=== PATIENT | male | born 1955 | race Caucasian/White ===

== ENCOUNTER → 2017-07-26 | Outpatient (CLI) | payer OTHER ==
[~2017-07-26] MED LIST: CEPH500C PO; LISI5TAB3 PO; LRT5 PO; ONDA8TAB6 PO; ONDA8TAB62 SL
--- NOTE | 2017-07-26 12:29 | DIAGNOSTIC IMAGING REPORT ---
CHEST 2 VIEWS ROUTINE CLINICAL HISTORY: Bronchitis. COMPARISON STUDY: No previous studies for comparison. FINDINGS: The lung volumes are normal. There is no pneumothorax or pleural effusion. There is a hazy 6.1 cm right infrahilar opacity on frontal projection. A definite correlate is not identified on the lateral projection. The left lung is clear. There is no evidence for pulmonary edema. Cardiomediastinal silhouette is normal. IMPRESSION: Hazy right infrahilar opacity which favors pneumonia. Radiographic follow-up to ensure resolution is recommended. Electronically signed by: Nish Bejarano M.D. 07/26/2017 12:28 PM Dictated Date/Time: 07/26/2017 12:26 PM
== END | disposition home or self-care (01) ==
LOC: C.LAB 11:37
PROVIDERS: ATTEND Internal Medicine
DX: J40 Bronchitis, not specified as acute or chronic (principal); R91.8 Other nonspecific abnormal finding of lung field

== ENCOUNTER → 2017-08-30 | Outpatient (CLI) | payer OTHER ==
[~2017-08-30] MED LIST changes: +ONDA-170 PO; -ONDA8TAB6 PO
--- NOTE | 2017-08-30 14:34 | DIAGNOSTIC IMAGING REPORT ---
CHEST 2 VIEWS ROUTINE CLINICAL HISTORY: 61 years-old Male presenting with PNEUMONIA FOLLOW-UP. TECHNIQUE: PA and lateral views of the chest were obtained. COMPARISON: 07/26/2017. FINDINGS: Cardiomediastinal silhouette normal. Previously noted hazy opacity in the right mid to lower lung is no longer evident. No new focal opacity. No pleural effusion or pneumothorax. Osseous structures normal. Upper abdomen normal. IMPRESSION: 1. No acute cardiopulmonary disease. Resolution of prior infiltrate in the right mid to lower lung. Electronically signed by: Alon Diallo M.D. 08/30/2017 2:33 PM Dictated Date/Time: 08/30/2017 2:32 PM
== END | disposition home or self-care (01) ==
LOC: C.RAD 13:40
PROVIDERS: ATTEND Internal Medicine
DX: Z09 Encounter for follow-up examination after completed treatment for conditions other than malignant neoplasm (principal); J18.9 Pneumonia, unspecified organism

== ENCOUNTER 2022-10-04 05:10 | Observation (INO) ==
--- NOTE | 2022-09-07 13:18 | PAT Medication Instructions ---
Medication Instructions Date of Service September 07, 2022 Home Medications glucosam 750 mg-chondroi 100 mg-hyalur 1.65 mg-CF borate 108 mg tablet ([employer]) 1 tab PO QAM lisinopril 20 mg tablet 20 mg PO QAM multivitamin 1 tab PO QAM tramadol 50 mg tablet 25 mg PO BID STOP taking 2 weeks before surgery glucosam 750 mg-chondroi 100 mg-hyalur 1.65 mg-CF borate 108 mg tablet ([facility] [employer]) 1 tab PO QAM DO NOT take the morning of surgery lisinopril 20 mg tablet 20 mg PO QAM multivitamin 1 tab PO QAM Take morning of surgery With a small sip of water, OTHERWISE NOTHING TO EAT OR DRINK AFTER MIDNIGHT: tramadol 50 mg tablet 25 mg PO BID (if needed) Take evening before surgery tramadol 50 mg tablet 25 mg PO BID (if needed) Other Notes If you have any questions please call us at [phone] or [phone] or [phone] or [phone]
--- NOTE | 2022-09-14 14:54 | Anesthesiology Consultation ---
Date of Service September 14, 2022 Assessment & Plan (1) Encounter for pre-operative examination: - Outpatient joint assessment: Patient is currently scheduled for inpatient pathway. If re-evaluated pending system levels during current pandemic/surgeon requests outpatient pathway, patient is not recommended candidate for outpatient joint program from anesthesia standpoint, pt also expresses concern with same day surgery. Chart Review Chart Review: Acceptable Risk for Surgery and Patient seen in Pre Admission Testing History Surgery Operation Date: 10/04/22 07:00 Proposed Procedures p Left Total Hip Arthroplasty - Alon Spann MD Height/Weight Height: 6 ft Weight: 88.451 kg Allergies Allergy/AdvReac Type Severity Reaction Status Date / Time No Known Allergies Allergy NONE Verified 09/06/22 12:49 Medications Home Medications Medication Instructions Recorded Confirmed Last Taken glucosam 750 mg-chondroi 100 1 tab PO QAM 09/06/22 09/06/22 Unknown mg-hyalur 1.65 mg-CF borate 108 mg tablet ([facility] [place] [employer]) lisinopril 20 mg tablet 20 mg PO QAM 09/06/22 09/06/22 Unknown multivitamin 1 tab PO QAM 09/06/22 09/06/22 Unknown tramadol 50 mg tablet 25 mg PO BID 09/06/22 09/06/22 Unknown Past Medical History Medical History (Updated 09/14/22 @ 15:01 by Bonita Gamble PA-C) History of COVID-19 x2 > last episode Mar 2022 > not hospitalized > symptoms resolved History of shingles 7 yrs ago Hypertension controlled, stable per pt Nausea and vomiting after administration of anesthetic agent denies needing scop patch Patient denies h/o stroke, seizures, heart attack, heart failure, DM, blood clots or blood transfusions. Exercise / Class Metabolic Activity II 4-5 Yardwork/Stairs/Walk up hill (denies chest discomfort or shortness of breath with 1 FOS) Past Family History Family History Mother Diabetes Past Surgical History Surgical History History of colonoscopy History of mandibular surgery alignment surgery History of tooth extraction Hx of vasectomy Past Anesthesia History No Hx of Anesthesia Complications and No Family Hx of Anesthesia Complications History of PONV No Hx of Motion Sickness and History of PONV (denies needing scop patch) Social History Smoking Status: Never smoker Do You Dip or Chew Tobacco: No Hx Alcohol Use: No Hx Substance Use: No substance use type: does not use Review of Systems Patient denies chest pain, shortness of breath, dyspnea on exertion, snoring, witnessed apneas, reflux, fever, chills, cough, wheezing, or palpitations. Physical Exam Vital Signs Vitals BP 128/73 P 86 TEMP 97.9 SP02 97% on RA RESP 18 Physical Full cervical extension range of motion without pain TMD 3.5 finger breadths Mallampati Score 2 Dentition: several caps/crowns, denies chipped or loose teeth, implants or bridges Lungs: normal respiratory effort. Clear throughout to auscultation, no adventitious breath sounds Cardiac: regular rate and rhythm, no murmurs noted Carotid arteries: negative bruit bilat Lab Results Anesthesia Preop Results Results Anesthesia Widget: Na 137 mmol/L (136-145) 09/14/22 K 4.3 mmol/L (3.5-5.1) 09/14/22 Cl 105 mmol/L (98-107) 09/14/22 CO2 27 mmol/L (21-32) 09/14/22 BUN 23 mg/dl (6-23) 09/14/22 Creat 1.31 mg/dl (0.6-1.4) 09/14/22 Glucose Level 89 mg/dl (70-99(Fasting)) 09/14/22 Blood Type O Positive 09/14/22 Antibody Screen NEGATIVE 09/14/22 Testing Laboratory Results 09/01/2022 WBC: 7 H/H: 13/41 PLATELETS: 274 PT: 9.9 PTT: INR: 1 UA: clear, negative Electrocardiogram Date: 08/29/22 NSR, rate 68 bpm Voltage criteria for LVH Nonspecific ST abnormality COVID-19 Risk Screen Screening Information COVID-19 Screen Date: 09/14/22 Exposure 21 Days Family/Household +COVID Last 21 Days: No Exposure 10 Days Any COVID Exposure Last 10 Days: No Symptoms Last 10 Days Experienced COVID Sx Last 10 Days: No + COVID 0-90 Days COVID + in Last 0-90 Days: No
--- NOTE | 2022-09-21 10:23 | History & Physical Report ---
Date of Service September 21, 2022 Assessment & Plan (1) Osteoarthritis of left hip: Plan: PRE-OP Diagnosis: Left hip osteoarthritis Planned Procedure: Left total hip arthroplasty Plan: Patient is scheduled to undergo this procedure at the [facility] with a 23-hour observation admission with Dr. Spann on September. Risks and complications of the procedure such as: Infection, bleeding, pain, scarring, nerve blood vessel damage, weakness, wound problems, stiffness, incomplete relief of symptoms, hardware failure, hardware loosening, wear, fracture, tendon or ligament injury, dislocation, leg length inequality, blood clots, Embolism, heart attack, stroke and were explained to the patient at his visit today. Informed consent to perform the procedure was obtained. Patient also understands risks of proceeding with surgical intervention during the COVID-19 pandemic. Currently he is asymptomatic and has not been in contact with anyone positive for the virus recently. Patient at his appointment with PAT on September 14 and while there will obtain CBC with differential, complete metabolic panel, PT/INR, blood type and screen, urinalysis, urine culture and sensitivity, EKG, hemoglobin A1c and a nasal culture for MRSA. Patient will also need preoperative medical clearance from their primary care provider Dr. Saldana. Patient states he saw Dr. Saldana on August 29 and was provided clearance to proceed with surgical intervention. Patient states that he plans on doing in-home physical therapy for the first 1 to 2 weeks postoperatively with [facility]. Patient states that he will most likely elect to do outpatient physical therapy at our PT clinic. Patient will need a walker, raised toilet seat, shower chair and a hip kit. During today's visit we reviewed the total hip packet as well as precautions. We discussed discharge planning from the hospital. Patient states that he already has a permanent placard for his vehicle due to his 's condition. We discussed lectures offered by [facility] in regards to joint replacement surgery via Zoom. I advised the patient that upon discharge from hospital we will prescribe a narcotic pain medication and anti-inflammatory. Patient will also be on an 81 mg aspirin twice daily for blood clot prevention. Patient will be scheduled for 2-week postoperative follow-up visit with myself on October 17. At that visit we will Provide the patient with an order for outpatient physical therapy and rehab protocol. Patient verbalizes understanding of all information provided during today's visit. He thanks for the care that he received. If he has questions or concerns that should arise prior to his surgery, he will contact clinic. This chart was completed utilizing [employer] voice recognition software. Grammatical errors, random word insertions, pronoun errors, and in complete sentences are an occasional consequence of the system. Any questions or concerns about the content, text, or information contained within the body of this dictation should be addressed directly to the physician for clarification. History of Present Illness Chief Complaint: Chief Complaint: Left hip pain Primary Care Provider: Louie Plascencia MD History of Present Illness (including history relevant to procedure): This 66-year-old male presents the clinic today for his preoperative history and physical. 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 Patient localizes most of his pain to the groin area. He seems to have exacerbations with certain twisting type movements or squatting. Patient states that he saw one of the other orthopedic groups in town initially who recommended an exercise program which he did without improvement. He has also been using naproxen and extra strength Tylenol with only minimal relief. Patient is electing to proceed with surgical intervention at this time because the hip issue is starting to affect his activities of daily life and makes it difficult to care for his disabled . Review Of Systems: A 12 point review of systems is performed and is unremarkable except for those things stated in the HPI past medical history. Past Medical History: Problems: Arthritis of left hip Nocturia HLD (hyperlipidemia) CKD (chronic kidney disease), stage III Encounter for monitoring chronic NSAID therapy Hip pain HTN (hypertension) Procedure History Procedure Procedure Date Comments Hip X-ray Jaw realignment surgery 1957 - Impression: Moderate to severe left hip osteoarthritis. No fracture or dislocation within the pelvis or hips. Allergies and Sensitivities: No Known Medication Allergies Current Home Meds: (Last Updated 09/19 10:15) chondroitin-glucosamine (Huseyin Move Free 500 mg-400 mg oral tablet) 1 tab PO BID lisinopril (lisinopril 20 mg oral tablet) 20 mg PO Daily traMADol (traMADol 50 mg oral tablet) 50 mg PO Daily PRN: as needed for pain may take half a pill BID Allergies Allergy/AdvReac Type Severity Reaction Status Date / Time No Known Allergies Allergy NONE Verified 09/06/22 12:49 Home Medications Medication Instructions Recorded Confirmed Type glucosam 750 mg-chondroi 100 1 tab PO QAM 09/06/22 09/06/22 History mg-hyalur 1.65 mg-CF borate 108 mg tablet ([facility]) lisinopril 20 mg tablet 20 mg PO QAM 09/06/22 09/06/22 History multivitamin 1 tab PO QAM 09/06/22 09/06/22 History tramadol 50 mg tablet 25 mg PO BID 09/06/22 09/06/22 History Past Med/Surg History Medical History History of COVID-19 x2 > last episode Mar 2022 > not hospitalized > symptoms resolved History of shingles 7 yrs ago Hypertension controlled, stable per pt Nausea and vomiting after administration of anesthetic agent denies needing scop patch Surgical History History of colonoscopy History of mandibular surgery alignment surgery History of tooth extraction Hx of vasectomy Family History Mother Diabetes Social History Smoking Status: Never smoker Second Hand Exposure: No; Do You Dip or Chew Tobacco: No; Hx Alcohol Use: No Hx Substance Use: No Preferred Language: Chinese Communication Ability: Effective Telecommunications Line Installer Required: No Beliefs That Will Affect Care: None Current Living Situation: Spouse Feels Safe at Home: Yes Assistive Devices: Glasses Review of Systems All systems reviewed & are unremarkable except as noted in Subjective Physical Exam Physical Exam: Physical Exam: (relevant to the procedure, including heart and lung evaluation) General: Alert and oriented x3 with proper grooming and hygiene Eyes: pupils are equal and reactive to light with accommodation. Extraocular movements are intact Throat: Posterior oropharynx is clear with absence of edema, erythema or exudate. Dentition is appropriate Cardiac: Regular rate and rhythm with no murmurs or gallops appreciated Lungs: Clear to auscultation throughout with no wheezing, rales or rhonchi Abdomen: Mildly obese, nondistended, nontender with NABS Extremities: Left hip; flexion is limited to 100 degrees, internal rotation to 0 degrees and external rotation to 45 degrees. Stinchfield test and logroll test are both positive. Patient experiences tenderness to palpation in the groin area as well as over the posterior lateral aspect and hip. He neurovascularly intact in the left lower extremity but does walk with a slight antalgic gait Neuro: Cranial nerves II through XII are intact no motor or sensory deficit Skin: Normal in appearance with no open skin areas or discharge Results & Data Diagnostic Findings Studies (relevant to the procedure): X-rays that were done on April 30, 2022, are reviewed. These include AP pelvis and AP and lateral of the left hip. These show severe osteoarthritis of the left hip with near [id number] arthritis, joint space narrowing, marginal osteophytes.
[2022-10-04] MEDS ORDERED: traMADol HCL 50 MG TABLET PO SCH (06:00)
[2022-10-04] MEDS ORDERED: ceFAZolin 2000MG 2,000 MG/15 ML SYR IV SCH (06:00)
[2022-10-04] MEDS ORDERED: Scopolamine 1 MG TDSY TD SCH (06:00)
[2022-10-04] MEDS ORDERED: LACTATED RINGER'S 1,000 ML IV SCH (06:00)
[2022-10-04] MEDS ORDERED: FAMOTIDINE 20 MG TAB PO SCH (06:00)
[2022-10-04] MEDS ORDERED: ROPIVACAINE 0.5% HCL/PF 150 MG, BUPIVACAINE 0.75% MPF 20 ML, EPINEPHrine 0.15 MG, Ketor... INFIL SCH (06:00)
[2022-10-04] MEDS ORDERED: TRANEXAMIC ACID 1,000 MG **IV Intra-op IV SCH (06:00)
[2022-10-04] MEDS ORDERED: ACETAMINOPHEN 500 MG TAB PO SCH (06:00)
[2022-10-04] MEDS ORDERED: CeleBREX 200 MG CAP PO SCH (06:00)
[2022-10-04] MEDS ORDERED: TRANEXAMIC ACID 1,000 MG **IV Pre-op IV SCH (06:00)
[2022-10-04] MEDS ORDERED: dexAMETHasone 4 MG TAB PO SCH (06:00)
[2022-10-04] MEDS ORDERED: LR 60ML/HR IV SCH (06:00)
[2022-10-04] MEDS ORDERED: ROPIVACAINE 0.5% 5 MG/ML 30 ML VIAL ONE (06:28)
[2022-10-04] MEDS ORDERED: fentaNYL citrate PF 100 MCG/2 ML VIAL ONE (06:42)
[2022-10-04] MEDS ORDERED: PROPOFOL IV EMULSION 10 MG/ML 20 ML VIAL IV ONE (06:42)
[2022-10-04] MEDS ORDERED: LIDOCAINE 2% 2 ML VIAL/AMP(20MG/ML) INFIL ONE (06:42)
[2022-10-04] MEDS ORDERED: MIDAZOLAM HCL 1 MG/ML 2ML VIAL ONE ×2 (06:43→06:45)
--- NOTE | 2022-10-04 06:43 | History & Physical Bridge Note ---
Date of Service October 04, 2022 History & Physical Bridge Note I have examined the patient, reviewed the History & Physical and in the interval since the performance of the History & Physical I have noted the following changes of clinical significance: no changes noted
[2022-10-04] MEDS ORDERED: HYDROmorphone INJ 1 MG/ML SYRINGE IV PRN (06:46)
[2022-10-04] MEDS ORDERED: PROMETHAZINE HCL 6.25 MG in SODIUM CHLORIDE 0.9% 50 ML IV PRN (06:46)
[2022-10-04] MEDS ORDERED: ATROPINE SULFATE 0.1 MG/ML 10ML SYR IV PRN (06:46)
[2022-10-04] MEDS ORDERED: ONDANSETRON INJ 2 MG/ML 2 ML VIAL IV PRN ×2 (06:46→08:33)
[2022-10-04] MEDS ORDERED: ePHEDrine sulfate 50 MG/ML AMP IV PRN (06:46)
[2022-10-04] MEDS ORDERED: ORTHO JOINT ANESTHETIC ONE (06:56)
[2022-10-04] MEDS ORDERED: ePHEDrine sulfate 50 MG/ML AMP ONE (07:59)
--- NOTE | 2022-10-04 08:25 | Operative Report ---
Post Operative Report Pre & Post Diagnosis Operation Date: 10/04/22 07:00 Pre-Op Diagnosis: Left Hip Osteoarthritis Post-Op Diagnosis: Left Hip Osteoarthritis I identified the patient and participated in the time-out.: Yes Procedure Operation Date: 10/04/22 07:00 Actual Procedures p Left Total Hip Arthroplasty(Left) - Alon Spann MD Surgeon Alon Spann MD Primary Counselor EUSEBIO Kessler PA-C. No resident or fellow was available to assist. Estimated Blood Loss 50 Findings Consistent with Post-Op Diagnosis Specimens None Anesthesia Type Spinal MAC Complications none Disposition Disposition: Recovery Room Indications 66-year-old male with left hip osteoarthritis refractory to conservative management. X-rays demonstrate ubrq-sy-dyva arthritis. I do long discussion with him about the risks and benefits of surgery, alternatives, and expected outcomes. After reviewing all these elected to proceed with surgery. All questions were answered. Informed consent was signed. Description of Procedure Patient was identified in the preoperative holding area where the surgical site, left hip, was marked. A spinal anesthetic was placed, then the patient was brought back to the main operating room, placed in the operating table and moved into the lateral decubitus position. Axillary roll was placed. All bony prominences were padded. Perioperative antibiotics and tranexamic acid 1 gram IV were administered. Operative extremity was prepped and draped in the normal sterile fashion. Prior to incision a multidisciplinary timeout was called. All in the room were in agreement. We began by making an incision for a posterior approach to the hip. We dissected down through subcutaneous tissues to the level of the fascia. The fascia was incised in line with the incision. Charnley bow was placed. Fatty tissue was reflected posteriorly off the back of the greater trochanter to expose the piriformis and short external rotators of the hip. The piriformis and short external rotators were dissected off the posterior aspect of the hip. A box cut was made in the capsule. Inferior hip capsule was released off the femur. The femoral head was dislocated. The femoral neck cut was made at our preoperative template. The acetabulum was then exposed. The labrum was sharply excised. Contents of the cotyloid fossa were removed with electrocautery. We then began reaming at a size 8 mm less than our preoperative template. We reamed up by [address] the way up to a size 60 mm cup. This gave us good bleeding cancellus bone circumferentially. The acetabulum was then irrigated out and dried. The real Watton Gription cup was then impacted down into position with 45 degrees of lateral opening and 25 degrees of anteversion. A single cancellous bone screw was placed up into the ilium. Excellent fixation was obtained. A trial liner for a 36 mm femoral head was then placed. Next we turned our attention to the femur. The lateral neck was removed with a box osteotome. Intramedullary guide was used followed by the lateralizing reamer. We then reamed up to a size 7 Livingston stem. We then broached all the way up to a size 7. We began trialing with a high offset neck and a +5 head. Hip was reduced. Leg lengths were symmetric. The hip was stable in extension and external rotation, and stable in the sleeper position. At 90 degrees of hip flexion the hip could be internally rotated 60 degrees before levering out of the cup. I was very happy with the stability exam. Therefore the hip was dislocated and the femoral trial was removed. The acetabulum was re-exposed, and the trial liner was removed. An Altrx polyethylene liner for a 36 mm femoral head was then impacted into the shell. The locking mechanism was checked to ensure that it had engaged which it had. The femur was re-exposed. The femoral canal was irrigated and dried. The real size 7 high offset Livingston femoral stem was opened up. This was impacted down into position. It sat at the same level as the femoral trial. Therefore the 36 mm ceramic femoral head with +5 mm offset was opened up and gently impacted down onto the trunnion. The hip was atraumatically reduced. Another 1 gram of IV tranexamic acid was started prior to closure. The wound was irrigated out with sterile Betadine solution. The periarticular injection cocktail was then placed. The short external rotators, piriformis, and posterior capsule were repaired through drill holes in the greater trochanter using #2 Vicryl. The fascia was run with a looped #1 PDS. The subcutaneous layer was closed with #1 PDS. The dermal layer was closed with 2-0 Vicryl. Zip line was used for the skin followed by a Silverlon dressing. A compressive dressing was then placed. The patient was then rolled supine. Leg lengths were rechecked and were symmetric. An abduction pillow was placed. Sedation was lifted and the patient was transferred to the recovery room in stable condition. Summary of implants: Depuy Watton Gription Acetabular Shell Sector Cup, 60 mm outer diameter Watton Cancellous bone screw, 6.5 x 40 mm Watton Altrx Polyethylene Acetabular Liner, Neutral, with a 36 mm inner diameter DePuy Livingston Femoral stem with Porocoat, 12/14 taper, size 7 high offset 36 mm ceramic femoral head with +5 offset Postoperative course: Patient will be admitted overnight to the hospital from the recovery room. Patient will be weightbearing as tolerated with posterior hip precautions. Aspirin for DVT prophylaxis I attest to the content of the Intraoperative Record and any orders documented therein. Any exceptions are noted below.
[2022-10-04] MEDS ORDERED: MAGNESIUM HYDROXIDE SUSP 30 ML UDC PO PRN (08:33)
[2022-10-04] MEDS ORDERED: ALUMINUM/MAGNESIUM SUSP 30 ML UDC PO PRN (08:33)
[2022-10-04] MEDS ORDERED: NALOXONE HCL 0.4 MG/1 ML VIAL/CARP IV PRN (08:33)
[2022-10-04] MEDS ORDERED: bisacodyL 10 MG SUPP PR PRN (08:33)
[2022-10-04] MEDS ORDERED: diphenhydrAMINE 50 MG/ML VIAL IV PRN (08:33)
[2022-10-04] MEDS ORDERED: HYDROmorphone INJ 0.5 MG/0.5 ML SYR IV PRN (08:33)
[2022-10-04] MEDS ORDERED: METOCLOPRAMIDE HCL INJ 5 MG/ML 2 ML VIAL IV PRN (08:33)
[2022-10-04] MEDS ORDERED: oxyCODONE HCL IR 5 MG TAB (IMMEDIATE RELEASE) PO PRN (08:33)
[2022-10-04] MEDS ORDERED: TAMSULOSIN HCL 0.4 MG CAP PO PRN (08:33)
--- NOTE | 2022-10-04 08:33 | Operative Report ---
Post Operative Report Pre & Post Diagnosis Operation Date: 10/04/22 07:00 Pre-Op Diagnosis: Left Hip Osteoarthritis Post-Op Diagnosis: Left Hip Osteoarthritis I identified the patient and participated in the time-out.: Yes Procedure Operation Date: 10/04/22 07:00 Actual Procedures p Left Total Hip Arthroplasty(Left) - Alon Spann MD Surgeon Alon Spann MD Locker Room Supervisor EUSEBIO Kessler PA-C. No resident or fellow was available to assist. Estimated Blood Loss 50 Findings Consistent with Post-Op Diagnosis Specimens femoral head Description of Procedure I was present during the entire case assisting with positioning, prepping, draping, wound retraction, wound closure, dressing and abduction pillow placement. No fellow present. Please see Dr. Spann procedure note for specifics of the case. I attest to the content of the Intraoperative Record and any orders documented therein. Any exceptions are noted below.
[2022-10-04] MEDS ORDERED: SODIUM CHLORIDE 0.9% 1000ML 1,000 ML IV SCH (08:45)
[2022-10-04] MEDS ORDERED: NON-FORMULARY MEDICATION (Multivitamin Tablet) PO SCH (09:00)
[2022-10-04] MEDS ORDERED: NON-FORMULARY MEDICATION (Glucosam-Chond-Hyalu-Cf Borate [Move Free Joint Health] 750 mg-1 PO SCH (09:00)
--- NOTE | 2022-10-04 09:31 | XRay Report ---
AP PELVIS History: Left total hip arthroplasty. Degenerative arthritis. Postop. FINDINGS: The patient is status post a left total hip arthroplasty. The hardware is intact. No fractu re or dislocation. IMPRESSION: Left total hip arthroplasty. No evidence for hardware complication. ACT 112: Negative or not required by law. Electronically signed by: Miki Pollock M.D. 10/04/2022 9:29 AM
[2022-10-04] MEDS: DOCUSATE SODIUM 100 MG CAP PO SCH ×2 (11:16→20:25)
[2022-10-04] MEDS: KETOROLAC 30 MG/ML VIAL IV SCH ×3 (11:16→22:09)
[2022-10-04] MEDS: CeleBREX 200 MG CAP PO SCH ×2 (11:16→19:23)
[2022-10-04] MEDS: ASPIRIN 81 MG ECTAB PO SCH ×2 (11:16→22:10)
[2022-10-04] MEDS: MULTIVITAMIN TAB PO SCH (11:17)
[2022-10-04] MEDS: lisinopril 20 MG TAB PO SCH (11:17)
[2022-10-04] MEDS: traMADol HCL 50 MG TABLET PO SCH ×2 (11:27→20:37)
--- NOTE | 2022-10-04 12:26 | Anesthesiology Progress Note ---
Date of Service October 04, 2022 Anesthesia Post Procedure Vital Signs Vital Signs: Temp Pulse Pulse Resp BP BP Pulse Ox 10/04/22 10:15 36.5 C 67 16 121/67 97 10/04/22 10:45 36.3 C L 16 131/72 97 10/04/22 10:00 55 L 16 111/57 L 95 10/04/22 09:50 36.4 C L 56 L 17 110/58 L 94 10/04/22 09:40 57 L 16 111/62 94 10/04/22 09:20 63 18 119/72 96 10/04/22 09:10 56 L 18 114/57 L 99 10/04/22 09:30 54 L 17 110/59 L 96 10/04/22 09:00 57 L 16 115/60 99 10/04/22 08:50 70 12 120/59 L 99 10/04/22 08:40 72 15 123/70 100 10/04/22 08:31 36.0 C L 61 16 110/59 L 100 10/04/22 05:45 36.5 C 86 20 139/80 100 O2 Del Method O2 Flow Rate 10/04/22 10:15 Room Air 10/04/22 10:45 Room Air 10/04/22 10:00 Room Air 10/04/22 09:50 Room Air 10/04/22 09:40 Room Air 10/04/22 09:20 Room Air 10/04/22 09:10 Room Air 10/04/22 09:30 Room Air 10/04/22 09:00 Room Air 10/04/22 08:50 Oxymask 5 10/04/22 08:40 Oxymask 5 10/04/22 08:31 Oxymask 5 10/04/22 05:45 Room Air Transfer of Care Handoff Completed per policy Notes Mental Status: alert / awake / arousable Patient Amnestic to Procedure: Yes Nausea / Vomiting: adequately controlled Pain: adequately controlled Airway Patency, RR, SpO2: stable & adequate BP & HR: stable & adequate Hydration State: stable & adequate Anesthetic Complications: no major complications apparent
[2022-10-04] MEDS: ACETAMINOPHEN 500 MG TAB PO SCH ×2 (14:14→22:09)
[2022-10-04] MEDS ORDERED: TRANEXAMIC ACID / 0.7% NACL 1,000 MG/100 ML BAG IV SCH (14:45)
[2022-10-04] MEDS: ceFAZolin 2000MG 2,000 MG/15 ML SYR IV SCH ×2 (15:39→22:09)
[2022-10-04] MEDS: Scopolamine CHECK PATCH PLACEMENT SCH ×2 (15:39→23:10)
[2022-10-04] MEDS ORDERED: SENNA 8.6 MG TAB PO SCH (21:00)
[2022-10-05] MEDS: ACETAMINOPHEN 500 MG TAB PO SCH (05:24)
[2022-10-05] MEDS: KETOROLAC 30 MG/ML VIAL IV SCH (05:25)
[2022-10-05 07:49] LABS: Basophils # (auto) 0.03 K/uL (0-0.2); Basophils % (auto) 0.2 %; Hematocrit (blood only) 33.8 % (42.0-52.0); Immature Granulocytes # (auto) 0.07 K/uL (0.01-0.20); Immature Granulocytes % (auto) 0.4 %; Lymphocytes # (auto) 1.36 K/uL (1.2-3.4); Lymphocytes % (auto) 8.4 %; Mean Corpuscular Hemoglobin 25.7 pg (25.0-34.0); Mean Corpuscular Hgb Conc 32.5 g/dL (32.0-36.0); Mean Platelet Volume 9.9 fL (9.4-12.4); Monocytes # (auto) 1.87 K/uL (0.11-0.59); Monocytes % (auto) 11.6 %; Neutrophils # (auto) 12.86 K/uL (1.40-6.50); Neutrophils % (auto) 79.4 %; Platelet Count 265 K/uL (130-400); RDW Standard Deviation 42.6 fL (36.4-46.3); Red Blood Count 4.28 M/uL (4.70-6.10); White Blood Count 16.19 K/ul (4.8-10.8)
[2022-10-05] MEDS ORDERED: dexAMETHasone 4 MG TAB PO SCH (08:00)
[2022-10-05 08:04] LABS: BUN Creatinine Ratio 20.3 (10-20); Calcium 8.4 mg/dl (8.6-10.3); Creatinine Clr Calc Pharmacy 55.3 ml/min; Est GFR (African American) 57.1 ml/min; Est GFR (Non-African American) 49.3 ml/min; Potassium 4.7 mmol/L (3.5-5.1)
[2022-10-05] MEDS: traMADol HCL 50 MG TABLET PO SCH (08:11)
[2022-10-05] MEDS: DOCUSATE SODIUM 100 MG CAP PO SCH (08:12)
[2022-10-05] MEDS: CeleBREX 200 MG CAP PO SCH (08:12)
[2022-10-05] MEDS: ASPIRIN 81 MG ECTAB PO SCH (08:12)
[2022-10-05] MEDS: lisinopril 20 MG TAB PO SCH (08:13)
[2022-10-05] MEDS: MULTIVITAMIN TAB PO SCH (08:13)
[2022-10-05] MEDS: Scopolamine CHECK PATCH PLACEMENT SCH (08:13)
--- NOTE | 2022-10-05 09:48 | Orthopedic Progress Note ---
Date of Service October 05, 2022 Assessment & Plan (1) S/P total left hip arthroplasty: Plan: Weightbearing as tolerated with walker assistance Total hip precautions reviewed PT/OT Keep Silverlon dressing in place Ice with easy wrap Pain control with p.o. medication DVT prophylaxis with aspirin and PITO stockings Plan is to discharge home later this morning with in-home physical therapy for the first 2 weeks postoperatively Follow-up at [facility] orthopedics as previously scheduled With questions contact our clinic at [phone] Admission and Anticipated Discharge Date Admission Date: October 04, 2022 Subjective This 66-year-old male is day 1 status post left total hip arthroplasty. He states he is doing very well. He states that last night he did have some pain but feels it is well managed with the oral pain pills he has been provided with. He is currently sitting at his bedside chair watching television. He is very anxious to be discharged home later this morning. Currently he denies chest pain, shortness of breath, fever, chills, sweats, nausea, vomiting or numbness or tingling in his left lower extremity. Review of Systems Review of Systems: All systems reviewed & are unremarkable except as noted in Subjective Physical Exam Physical Exam: Left hip: Outer dressing was removed. Silverlon is left in place. Is clean dry and intact. Patient is able to perform active straight leg raise test. He is able to actively dorsi and plantarflex his foot without issue. He is able to detect light sensation to touch over the pads of all digits. Logroll test causes him no pain. Stinchfield test causes no pain. He experiences some slight tension with light passive hip internal rotation. He has no pain with passive hip flexion to 90 degrees or light passive external rotation. His quad strength is 4 out of 5. He is neurovascularly intact in the left lower extremity. Results & Data Vital Signs (Past 12 Hours) Vital Signs Temp Pulse Pulse Resp BP Pulse Ox O2 Del Method 10/05/22 05:40 36.5 C 56 L 18 113/63 99 Room Air 10/05/22 04:00 36.6 C 58 L 16 109/60 97 Room Air 10/04/22 23:49 36.6 C 66 18 110/65 97 Room Air Diagnostic Findings Laboratory Results WBC 16.19 K/ul (4.8-10.8) H 10/05/22 06:51 RBC 4.28 M/uL (4.70-6.10) L 10/05/22 06:51 Hgb 11.0 g/dl (14.0-18.0) L 10/05/22 06:51 Hct 33.8 % (42.0-52.0) L 10/05/22 06:51 MCV 79.0 fL (80.0-100.0) L 10/05/22 06:51 MCH 25.7 pg (25.0-34.0) 10/05/22 06:51 MCHC 32.5 g/dL (32.0-36.0) 10/05/22 06:51 RDW Std Deviation 42.6 fL (36.4-46.3) 10/05/22 06:51 RDW Coeff of Jake 15.0 % (11.5-14.5) H 10/05/22 06:51 Plt Count 265 K/uL (130-400) 10/05/22 06:51 MPV 9.9 fL (9.4-12.4) 10/05/22 06:51 Immature Gran % (Auto) 0.4 % 10/05/22 06:51 Neut % (Auto) 79.4 % 10/05/22 06:51 Lymph % (Auto) 8.4 % 10/05/22 06:51 Ector % (Auto) 11.6 % 10/05/22 06:51 Eos % (Auto) 0.0 % 10/05/22 06:51 Baso % (Auto) 0.2 % 10/05/22 06:51 Neut # (Auto) 12.86 K/uL (1.40-6.50) H 10/05/22 06:51 Lymph # (Auto) 1.36 K/uL (1.2-3.4) 10/05/22 06:51 Ector # (Auto) 1.87 K/uL (0.11-0.59) H 10/05/22 06:51 Eos # (Auto) 0.00 K/uL (0-0.50) 10/05/22 06:51 Baso # (Auto) 0.03 K/uL (0-0.2) 10/05/22 06:51 Immature Gran # (Auto) 0.07 K/uL (0.01-0.20) 10/05/22 06:51 Sodium 134 mmol/L (136-145) L 10/05/22 06:51 Potassium 4.7 mmol/L (3.5-5.1) 10/05/22 06:51 Chloride 104 mmol/L (98-107) 10/05/22 06:51 Carbon Dioxide 25 mmol/L (21-32) 10/05/22 06:51 Anion Gap 5 (3-11) 10/05/22 06:51 BUN 30 mg/dl (6-23) H 10/05/22 06:51 Creatinine 1.48 mg/dl (0.6-1.4) H 10/05/22 06:51 Est Cr Clr Drug Dosing 55.3 ml/min 10/05/22 06:51 Est GFR ( Amer) 57.1 ml/min 10/05/22 06:51 Est GFR (Non-Af Amer) 49.3 ml/min 10/05/22 06:51 BUN/Creatinine Ratio 20.3 (10-20) H 10/05/22 06:51 Glucose 108 mg/dl (70-99(Fasting)) H 10/05/22 06:51 Calcium 8.4 mg/dl (8.6-10.3) L 10/05/22 06:51 SARS-CoV-2, RNA, NAAT NEGATIVE (NEGATIVE) 10/04/22 Unknown Impressions Pelvis X-Ray 10/04/22 08:34 AP PELVIS History: Left total hip arthroplasty. Degenerative arthritis. Postop. FINDINGS: The patient is status post a left total hip arthroplasty. The hardware is intact. No fracture or dislocation. IMPRESSION: Left total hip arthroplasty. No evidence for hardware complication. ACT 112: Negative or not required by law. Electronically signed by: Miki Pollock M.D. 10/04/2022 9:29 AM
--- NOTE | 2022-10-05 09:53 | Discharge Summary ---
Date of Service October 05, 2022 Admission HPI Per Admitting Provider History of Present Illness (including history relevant to procedure): This 66-year-old male presents the clinic today for his preoperative history and physical. 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 Patient localizes most of his pain to the groin area. He seems to have exacerbations with certain twisting type movements or squatting. Patient states that he saw one of the other orthopedic groups in town initially who recommended an exercise program which he did without improvement. He has also been using naproxen and extra strength Tylenol with only minimal relief. Patient is electing to proceed with surgical intervention at this time because the hip issue is starting to affect his activities of daily life and makes it difficult to care for his disabled . Review Of Systems: A 12 point review of systems is performed and is unremarkable except for those things stated in the HPI past medical history. Past Medical History: Problems: Arthritis of left hip Nocturia HLD (hyperlipidemia) CKD (chronic kidney disease), stage III Encounter for monitoring chronic NSAID therapy Hip pain HTN (hypertension) Procedure History Procedure Procedure Date Comments Hip X-ray Jaw realignment surgery 1957 - Impression: Moderate to severe left hip osteoarthritis. No fracture or dislocation within the pelvis or hips. Allergies and Sensitivities: No Known Medication Allergies Current Home Meds: (Last Updated 09/19 10:15) chondroitin-glucosamine (Huseyin Move Free 500 mg-400 mg oral tablet) 1 tab PO BID lisinopril (lisinopril 20 mg oral tablet) 20 mg PO Daily traMADol (traMADol 50 mg oral tablet) 50 mg PO Daily PRN: as needed for pain may take half a pill BID Admission Exam Per Admitting Provider Physical Exam: (relevant to the procedure, including heart and lung evaluation) General: Alert and oriented x3 with proper grooming and hygiene Eyes: pupils are equal and reactive to light with accommodation. Extraocular movements are intact Throat: Posterior oropharynx is clear with absence of edema, erythema or exudate. Dentition is appropriate Cardiac: Regular rate and rhythm with no murmurs or gallops appreciated Lungs: Clear to auscultation throughout with no wheezing, rales or rhonchi Abdomen: Mildly obese, nondistended, nontender with NABS Extremities: Left hip; flexion is limited to 100 degrees, internal rotation to 0 degrees and external rotation to 45 degrees. Stinchfield test and logroll test are both positive. Patient experiences tenderness to palpation in the groin area as well as over the posterior lateral aspect and hip. He neurovascularly intact in the left lower extremity but does walk with a slight antalgic gait Neuro: Cranial nerves II through XII are intact no motor or sensory deficit Skin: Normal in appearance with no open skin areas or discharge Principal Diagnosis Left hip osteoarthritis Discharge Exam Left hip: Outer dressing was removed. Silverlon is left in place. Is clean dry and intact. Patient is able to perform active straight leg raise test. He is able to actively dorsi and plantarflex his foot without issue. He is able to detect light sensation to touch over the pads of all digits. Logroll test causes him no pain. Stinchfield test causes no pain. He experiences some slight tension with light passive hip internal rotation. He has no pain with passive hip flexion to 90 degrees or light passive external rotation. His quad strength is 4 out of 5. He is neurovascularly intact in the left lower extremity. Discharge Data Allergies Allergy/AdvReac Type Severity Reaction Status Date / Time No Known Allergies Allergy NONE Verified 10/04/22 05:42 Procedures Performed Operation Date: 10/04/22 07:00 Actual Procedures p Left Total Hip Arthroplasty(Left) - Alon Spann MD Hospital Course (1) S/P total left hip arthroplasty: Patient essentially had an uneventful overnight stay. He states that last night he did have some significant pain but feels it was well managed with oral and IV pain medication. He is ready to be discharged home soon as possible. He will be doing in-home physical therapy with [facility] for the first 2 weeks postoperatively. Weightbearing as tolerated with walker assistance Total hip precautions reviewed PT/OT Keep Silverlon dressing in place Ice with easy wrap Pain control with p.o. medication DVT prophylaxis with aspirin and PITO stockings Plan is to discharge home later this morning with in-home physical therapy for the first 2 weeks postoperatively Follow-up at [facility] orthopedics as previously scheduled With questions contact our clinic at [phone] Total Time Total Time Spent Total Time Spent (In Minutes): 20 minutes Discharge Plan Discharge Items Patient Disposition: Home - Home Health Services Reason For Visit: Left Hip Osteoarthritis Discharge Diagnosis: Left Hip Osteoarthritis Activity: As commented below Lifting: None Bathing: Keep incision dry Bathing Comment: May shower tomorrow Sexual Activity: Wait until after follow-up appointment Exercise/Sports: Wait until after follow-up appointment Driving/Machine Use: No driving until cleared by irrigation specialist Weightbearing: Left weightbearing Weightbearing Comment: as tolerated with walker assistance Non-emergency contact: Surgeon Call non-emergency contact if: you have any medication questions, your pain is not controlled, your temperature is above 101.5, your wound has increased drainage and your wound pain has increased Follow-up/Referrals: Louie Plascencia MD [Staff Physician] - Diet: Regular Ambulatory Orders: Type and Screen (Routine) Timeframe: [id number] Location: Determined by Patient Ordered By: Bonita Waller Attending Provider Instructions: Post-operative Instructions Dear Patient and Family/Friends, Before you are discharged from the hospital, it is important to know what to expect when you get home after surgery. To that end, we have created this sheet of discharge instructions which covers many commonly asked questions. Make sure you go through this sheet in its entirety with your nurse before you are discharged. Please note that we will go over the specifics of your surgery and recovery when you return for your first post-operative visit. Sincerely, Dr. Spann Medication 1. Oxycodone 5 mg: take 1-2 tabs every 4-6 hours as needed for pain control. A prescription will be sent to your pharmacy for this medication. 2. Diclofenac Sodium 75 mg: take 1 tab twice daily for 30 days post operatively for pain and inflammation relief. A prescription will be sent to your pharmacy for this medication with 1 refill. 3. Aspirin 81 mg: take 1 tab twice daily for 30 days post operatively for blood clot prevention. Please purchase. 4. Extra Strength Tylenol 500 mg: take 2 tabs every 6-8 hours as needed for additional pain relief. Please puchase this medication. Pain Expect to be in a fair amount of pain after surgery. Remember, our goal is not to eliminate your pain, but to make it tolerable. It is a good idea to stay ahead of your pain by taking the medications you were prescribed once you get home. Typically, the pain starts improving 3-7 days after surgery. You should start weaning off the narcotic pain medication (oxycodone, hydrocodone, hydromorphone, morphine) as soon as your pain improves. Please call our office if your pain is not adequately controlled. Ice Ice your operative site at least 5 times a day for 15-30 minutes at a time. Make sure you have a thin cloth between the ice or cooling unit and your skin to prevent rashid bite. This is especially important if you received a nerve block. Continue icing your operative site for the first 5-7 days after surgery, then as needed. Diet/Nausea/Vomiting Start by drinking clear liquids and eating crackers. If you can tolerate this, then you may resume your normal diet. If you feel nauseated or vomit, take Zofran/ondansetron (if prescribed). Please call our office if you have intractable nausea or vomiting, or, if after hours, you may go to the Emergency Room for help. Constipation Constipation is a common side effect of narcotic pain medication. If you have not had a bowel movement within 2 days after surgery, we recommend purchasing an over the counter laxative such as Milk of Magnesia, Dulcolax, or Miralax from a local pharmacy, and taking it as instructed. Call our clinic if any questions. Nerve block The anesthesia team sometimes places a nerve block to help with post-operative pain control. This results in significant numbness and inability to move the extremity. The nerve block usually wears off in 8-12 hours, but sometimes can last up to 24 hours. Please call our office if you are still unable to move your extremity after 24 hours, unless you received a pain pump to take home. Nerve blocks typically wear off quickly, so start taking pain medication as soon as you start feeling soreness near your surgical site. Weight bearing and Range of Motion. Do not bear any weight through your operative extremity immediately after surgery. If you had upper extremity surgery, do not lift anything with that arm. If you are in a knee brace, keep it locked in place until your follow-up. We will discuss your weight bearing, range of motion, and lifting restrictions in detail at your first post-operative appointment. Continuous Passive Motion (CPM) Machine If you were prescribed a CPM machine, it will start after your first post- operative appointment, at which time we will give you instructions on the range of motion settings and duration of treatment Physical therapy You will be given a prescription for physical therapy or occupational therapy at your first post-operative appointment. Typically, patients start therapy within 1 week of surgery Wound care and showering We will inspect your wound at your first post-operative visit, and may do a dressing change at that time. Most patients will be in a water-proof dressing that is removed 14 days after surgery. It is normal to see some dried blood on the dressing. Do not remove your dressing, paper strips or sutures yourself unless you are given permission. Showering is allowed the day after surgery. Do not scrub or remove any dressings. The wound should not be submerged underwater (i.e. in a bathtub or pool) until 4 weeks after surgery PITO stockings If you were given white stockings, these are to be worn at all times except to shower (on both legs) for the first 2 weeks after surgery. Driving You may not drive while taking narcotic pain medication or while in a cast, splint, sling or brace. You, the patient, need to make the final determination about when you are safe to drive, however, the earliest you may consider driving after surgery is below: Hand/Wrist/Elbow Surgery: 3 days Shoulder Surgery: 2 weeks Hip,/Knee/Ankle Surgery: 4 weeks Fracture repair: 6 weeks Return to Work Your return to work depends on what surgery was done and what type of work you do. Please bring any paperwork your employer needs completed to your first post-operative visit. Also, bring a description of your job duties, as this helps us to understand what risks you may face at work. Travel Avoid long distance travel (greater than 1 hour) in airplanes and cars for the first 6 weeks after surgery. If you must travel, you need to have a Doppler ultrasound done before you travel to rule out a blood clot in your legs. Follow-up You should have a follow-up appointment already scheduled 1-2 days after surgery. If not, please contact our office to make this appointment before you leave the hospital. When to call the office It is normal to have swelling and bruising in the limb that was operated on. This will improve with time. It is also normal to have fevers for the first 2 days after surgery. Reasons you should call your doctor include: Uncontrolled pain; Nausea, vomiting, or constipation that does not improve with medication; Fevers over 101.5, chills, sweats; Drainage or bleeding from the wound; Foul odor; Spreading areas of redness; Any other concerns Pending Studies at Discharge: No Stand-Alone Forms: [facility] Medications and DC Order Prescriptions: New aspirin 81 mg Tablet,Delayed Release (Dr/Ec) 81 mg PO BID 30 Days Qty: 60 0RF acetaminophen [Tylenol Extra Strength] 500 mg Tablet 1,000 mg PO Q8 30 Days Qty: 180 0RF oxycodone 5 mg Tablet 5 - 10 mg PO Q4H PRN (Reason: Postoperative pain control) Qty: 28 0RF diclofenac sodium 75 mg tablet,delayed release (DR/EC) 75 mg PO BID 30 Days Qty: 60 1RF Continued multivitamin Tablet 1 tab PO QAM lisinopril 20 mg Tablet 20 mg PO QAM Move Free Joint Health 750 mg-100 mg- 1.65 mg-108 mg Tablet 1 tab PO QAM Discontinued tramadol 50 mg Tablet 25 mg PO BID Admission Data Admit Date/Time: 10/04/22 08:34 Attending Provider: Alon Spann Admit Provider: Alon Spann Primary Care Provider: Carrington Saldana Other Providers: [facility]
== END 2022-10-05 11:12 | disposition home health service (06) ==
LOC: 3W 05:10 → ASU 05:10